=== PATIENT | female | born 1950 | race Caucasian/White ===

== ENCOUNTER 2017-03-16 10:01 | Emergency (ER) | payer MEDICARE, MEDICAID ==
[2017-03-16 10:09] VITALS: BP 149/76
[2017-03-16] MEDS ORDERED: DIPHTH,PERTUSS(ACELL),TET VAC 0.5 ML VIAL IM ONE ×2 (10:41→10:44)
--- NOTE | 2017-03-16 10:43 | ERNOTE ---
Animal Bite ER Date of Service: 03/16/17 Presenting Symptoms: bitten Time Seen by Provider: 03/16/17 10:10 Source: patient Exam Limitations: no limitations Immunizations: IMMUNIZATION HX History of Influenza Vaccine Yes Allergies/Adverse Reactions: Allergies No Known Allergies Allergy (Verified 03/16/17 10:09) Home Medications: HOME MEDICATIONS Aspirin [Aspirin Chewable] 81 mg PO DAILY 11/25/14 [Last Taken 11/25/14] Metoprolol Tartrate [Lopressor] 50 mg PO DAILY 11/25/14 [Last Taken 11/25/14] Amox Tr/Potassium Clavulanate [Augmentin 875-125 Tablet] 875 mg PO Q12H #20 tab 03/16/17 [Last Taken Unknown] Narrative: Pt is a 66 year old female who presents following getting bitten by her cat last night. The cat is an inside cat, she was taking it to get its vaccinations. All other cats in the house are up to date on their vaccinations. She denies n/v/d, endorses chills last night, but no fever. She washed the area with antibacterial soap and water this morning and last night. Date (Duration): 03/15/17 Time (Timing): 13:00 Onset Time: yesterday Location of Incident: Reports: home Animal Type: Reports: cat Animal Appearance: healthy Animal's Immunization Status: Reports: not immunized Observation/Capture: Reports: animal known, animal can be observed for 10 days Context of Attack: Reports: approached animal Severity of injury: Reports: bitten Location of Injury: Reports: upper extremity (L) Associated symptoms: Denies: numbness distally, pain on movement, tingling Review of Systems - Review of Systems Constitutional: Present: chills ENT: Present: no symptoms reported Respiratory: Present: no symptoms reported Cardiology: Present: no symptoms reported Gastrointestinal/Abdominal: Present: no symptoms reported Musculoskeletal: Present: no symptoms reported Skin: Present: other - two puncture meng on dorsal aspect of left index finger , surrounding erythema extending through half dorsal aspect of palm -scant serous drainage Neurological: Present: no symptoms reported - Patient's Past Medical History Patient History - Medical: No pertinent hx Patient History - Cardiac/Respiratory: Atrial Fibrillation Patient History - Surgical Procedures: D & C, Hysterectomy, Total Knee Replacement, T & A Patient History - Other: None - Social History Living Situations: home Psych History: No pertinent hx Alcohol Use: none Drug Use: none - Immunizations History of Influenza Vaccine: Yes Physical Exam - Physical Exam General Appearance: Present: wd/wn, alert, no apparent distress Respiratory: Present: no respiratory distress, no accessory muscle use Cardiovascular/Chest: Present: regular rate, rhythm, normal peripheral pulses Extremity Exam: Present: decreased range of motion, extremity edema - left index finger Neurological Exam: Present: alert, oriented, normal mood/affect, no motor/ sensory deficits Skin Exam: Present: other - erythema to left index finger Lymphatic Exam: Present: no adenopathy ED Progress - Vital Signs Patient's Vital Signs:: I have reviewed the patient's vital signs. Vital Signs: Vital Signs 03/16/17 10:04 Temperature 36.4 C L Pulse Rate 90 Respiratory 12 Rate Blood Pressure 149/76 O2 Sat by Pulse 98 Oximetry - Progress/Reassessment Chief Complaint: Animal Bite Progress:: Unchanged Departure Clinical Impression: Animal bite of finger Qualifiers: Encounter type: initial encounter Qualified Code(s): S61.259A - Open bite of unspecified finger without damage to nail, initial encounter - Departure Disposition: Home self-care Condition: Good Instructions: Animal Bite Additional Instructions: Soak area in warm soapy water three times a day keep wound clean and dry monitor for increased swelling, warmth, fever, or drainage-seek medical attention if noted Referrals: Randal Carrasco DO [Primary Care Provider] - Prescriptions: Amox Tr/Potassium Clavulanate [Augmentin 875-125 Tablet] 875 mg PO Q12H #20 tab
== END 2017-03-16 10:49 | disposition home or self-care (01) ==
LOC: ER 10:01
DX: S61.259A Open bite of unspecified finger without damage to nail, initial encounter (principal); W55.01XA Bitten by cat, initial encounter; Y92.009 Unspecified place in unspecified non-institutional (private) residence as the place of occurrence of the external cause; Z23 Encounter for immunization; I48.91 Unspecified atrial fibrillation

== ENCOUNTER 2018-06-21 11:35 | Observation (INO) ==
[2018-06-21] MEDS ORDERED: NORMAL SALINE 1,000 ML IV ONE ×3 (12:00→15:12)
[2018-06-21 12:16] LABS: Urine Appearance Clear (CLEAR); Urine Bacteria None Seen; Urine Bilirubin Negative (NEGATIVE); Urine Blood Negative /ul (NEGATIVE); Urine Color Yellow; Urine Ketone Negative (NEGATIVE); Urine Nitrite Negative (NEGATIVE); Urine Protein Negative (NEGATIVE); Urine RBC 0-5 /hpf (0-5); Urine Urobilinogen Normal (NORMAL); Urine WBC 0-5 /hpf (0-5)
--- NOTE | 2018-06-21 12:19 | ERNOTE ---
Medical Problem HPI - General Chief Complaint: Dizziness Time Seen by Provider: 06/21/18 12:02 Source: patient Exam Limitations: no limitations - Immun/Allergies/Home Medications Immunizations: IMMUNIZATION HX Immunizations Up to Date Yes History of Influenza Vaccine Yes Hx Pneumococcal Vaccination Yes Allergies/Adverse Reactions: Allergies No Known Allergies Allergy (Verified 06/21/18 11:57) Home Medications: HOME MEDICATIONS Aspirin [Aspirin Chewable] 81 mg PO DAILY 11/25/14 [Last Taken 02/03/18] cholecalciferol (vitamin D3) 1,000 unit tablet 1,000 unit PO DAILY 12/31/17 [Last Taken 02/03/18] multivitamin tablet 1 tab PO DAILY 12/31/17 [Last Taken 02/03/18] naproxen sodium 220 mg capsule 220 mg PO BID PRN 12/31/17 [Last Taken Unknown] metoprolol succinate ER 50 mg tablet,extended release 24 hr 50 mg PO DAILY #90 tab 03/19/18 [Last Taken Unknown] - History of Present History Narrative: Patient was seen in the ER yesterday morning after she had a near syncopal ep isode falling off the toilet. She was found to not have any significant injuries, was able to ambulate, and was discharged home. She states that she slept a lot, but felt well otherwise, was able to ambulate and took a shower. When she was ready to go to bed around 21:00 she started to feel lightheaded and weak again, might have passed out (as she found herself in bed in the wrong direction), continued to feel weak and dizzy, used the trash can to urinate as she couldn't get up and now arrives by EMS. She denies any focal symptoms, no chest pain, no abdominal pain, no vomiting, no diarrhea Review of Systems - Review of Systems Constitutional: Present: weakness, fatigue, malaise. Absent: recent illness, fever, chills EYE: Absent: vision changes ENT: Absent: nose congestion, sore throat Respiratory: Absent: shortness of breath, cough Cardiology: Absent: chest pain Gastrointestinal/Abdominal: Absent: nausea, vomiting, diarrhea, abdominal pain Genitourinary: Absent: frequency, dysuria Musculoskeletal: Absent: back pain Neurological: Present: dizziness/light-headedness, weakness. Absent: headache, numbness Medical History (Updated 06/20/18 @ 08:03 by Eloy Nayak DO) Lives with relatives Hemangioma of skin Onset Date: Unknown on the trunk of body Hypertension Onset Date: Unknown Irregular heart beat Onset Date: Unknown Obesity Onset Date: Unknown Seborrheic keratosis Onset Date: Unknown on trunk of body Cervical cancer Onset Date: ~1973 Surgical History: Surgical History (Updated 02/08/18 @ 14:35 by Jacquelyn Maurer RN) History of arthroscopy of knee Onset Date: ~1994 right History of cholecystectomy Onset Date: ~1996 lap History of colonoscopy Onset Date: 02/05/18 02/05/18 Maira-diverticulosis. No further follow up. History of dilation and curettage Onset Date: ~1973 prior to hysterectomy History of knee replacement Onset Date: ~2003 right History of oophorectomy Onset Date: ~1974 left-during hysterectomy History of tonsillectomy Onset Date: ~1973 History of total vaginal hysterectomy (TVH) Onset Date: ~1974 Dr Stuart-cervical cancer Family History: Family History (Updated 01/07/18 @ 10:09 by Jacquelyn Maurer RN) Father , age 93-unsure of cause Hypertension Diabetes Parkinson disease Mother A-fib Cancer non Hodgkins lymphoma-dx age 81 Brother Migraines 1 brother Obstructive sleep apnea 1 brother Alive and well 1 brother Grandmother Cancer maternal-breast ( in her 40's) Grandfather CVA (cerebral vascular accident) paternal Social History: Preferred Language Tuvaluan Do you have any mormon or No cultural preference? Smoking Status Former smoker Psych History No pertinent hx Alcohol Use none Drug Use none (Last Updated 01/17/18 @ 17:26 by Randal Carrasco DO) No Social History Section defined Physical Exam - Physical Exam General Appearance: Present: wd/wn, alert, no apparent distress, obese Head Exam: Present: normal inspection, no evidence of injury Eye Exam: Normal inspection: bilateral, PERRL: bilateral Ears, Nose, Throat: Present: normal ENT inspection Neck: Present: normal inspection Respiratory: Present: no respiratory distress, normal breath sounds, no accessory muscle use, lungs clear Cardiovascular/Chest: Present: no murmur, tachycardia Gastrointestinal/Abdominal: Present: normal bowel sounds, nontender, nondistended, soft Extremity Exam: Present: pedal edema - trace Neurological Exam: Present: alert, oriented, normal mood/affect, no motor/sensory deficits, 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 Absent: facial droop Skin Exam: Present: normal color, warm/dry Progress - Results and Orders Patient's Lab Results:: I have reviewed the patient's lab results. - Vital Signs Patient's Vital Signs:: I have reviewed the patient's vital signs. Vital Signs: Vital Signs 06/21/18 11:49 06/21/18 12:06 Temperature 36.2 C Pulse Rate 110 H 112 H Respiratory Rate 19 18 Blood Pressure 92/67 70/50 L O2 Sat by Pulse Oximetry 100 99 - EKG EKG #1 EKG: NSR - sinustachycardia - CT/Ultrasound CT/Ultrasound Narrative: nuclear medicine study: Positive for active GI bleed likely at the level of the stomach. - Progress/Reassessment Chief Complaint: Dizziness Progress Note-Subjective: 06/21/18 12:20 patient had large black BM concerning for GI bleed will order bleeding scan 06/21/18 12:[address] Deras 06/21/18 14:52 discussed bleeding scan with Dr Beard 06/21/18 15:00 discussed bleeding scan with Dr Deras, will take patient to OR for EGD as soon as OR is available 06/21/18 15:10 updated patient on plan 06/21/18 17:52 awaiting EGD, BP stable, will give one unit of RBCs as anticipating H/H o drop further depending on EGD results patient will be either admitted or transferred Departure Clinical Impression: Upper GI bleed - Departure Disposition: Still a patient Condition: Stable
[2018-06-21 12:24] LABS: Hematocrit 24.9 % (37.0-47.0); Hemoglobin 8.1 gm/dL (12.5-16.0); Mean Cell Volume 86.2 fl (78-100); Mean Corpuscular Hgb Conc 32.5 g/dl (32-36); Mean Platelet Volume 10.3 fl (8-12.5); Neutrophil # 10.6 K/mm3 (1.3-6.0); Neutrophil % 77.1 % (42-75.0); Platelet Count 260 K/mm3 (150-450); Red Blood Count 2.89 M/mm3 (4.2-5.4); Red Cell Distribution Width 14.2 % (11.5-14.0); White Blood Count 13.7 K/mm3 (4.0-10.5)
[2018-06-21] MEDS ORDERED: PANTOPRAZOLE SODIUM 40 MG/100 ML PIGGYBACK IV ONE (12:36)
[2018-06-21 13:33] LABS: Albumin * 2.8 gm/dl (3.4-5.0); Anion Gap 16.4 mmol/L (6.8-13.8); BUN/Creatinine Ratio 67.5 (9.0-21.6); Bilirubin, Total 0.3 mg/dL (0.0-1.1); Ca. Corrected For Albumin 8.7 mg/dL (8.4-10.2); Calcium * 8.1 mg/dL (7.9-10.9); Carbon Dioxide 21.6 mmol/L (24-32.6); Total Protein 5.8 gm/dL (6.2-8.2)
[2018-06-21 15:41] LABS: Hematocrit 25.5 % (37.0-47.0); Hemoglobin 8.2 gm/dL (12.5-16.0)
--- NOTE | 2018-06-21 15:55 | HP ---
Chief Complaint - Chief Complaint Date of Service: 06/21/18 Time of Service: 15:55 Chief Complaint: passed out, weak History of Present Illness: She states she really started having trouble on Sunday. Her head feeling funny "like clapping your hands over your ears". Patient was seen in the ER yesterday morning after she had a near syncopal episode falling off the toilet and twisting her left knee. She was found to have no significant injuries, was able to ambulate, and was discharged home. Her hemoglobin was 11.5 (down from 14.3 in October 2014). She was given "a double dose of naproxen". She states that she slept a lot, but felt well otherwise, was able to ambulate and took a shower. When she was ready to go to bed she started to feel lightheaded and weak again, might have passed out (as she found herself in bed in the wrong direction), continued to feel weak and dizzy, used the trash can to urinate as she couldn't get up and now arrives by EMS. She denies any focal symptoms, no chest pain, no abdominal pain. She had a large black bowel movement. She has not eaten today After arrival in the ER her hemoglobin was found to be 8.1 and a nuclear medicine tagged red blood cell study was obtained. The scan shows activity with gradual accumulation in the stomach indicating ongoing bleeding. Her vital signs have remained stable and a repeat hemoglobin is 8.2. She gets occasional indigestion or upset stomach but denies epigastric pain. She has considerable pain in her left knee on a regular basis and takes naproxen at least once a day. She is also on aspirin 81 mg daily She had a colonoscopy in February with the findings of sigmoid diverticulosis. Medical History (Updated 06/21/18 @ 15:55 by Maci Deras MD) Lives with relatives Hemangioma of skin Onset Date: Unknown on the trunk of body Hypertension Onset Date: Unknown Irregular heart beat Onset Date: Unknown Obesity Onset Date: Unknown Seborrheic keratosis Onset Date: Unknown on trunk of body Cervical cancer Onset Date: ~1973 Surgical History: Surgical History (Updated 06/21/18 @ 15:55 by Maci Deras MD) History of arthroscopy of knee Onset Date: ~1994 right History of cholecystectomy Onset Date: ~1996 lap History of colonoscopy Onset Date: 02/05/18 02/05/18 Maira-diverticulosis. No further follow up. History of dilation and curettage Onset Date: ~1973 prior to hysterectomy History of knee replacement Onset Date: ~2003 right History of oophorectomy Onset Date: ~1974 left-during hysterectomy History of tonsillectomy Onset Date: ~1973 History of total vaginal hysterectomy (TVH) Onset Date: ~1974 Dr Stuart-cervical cancer Family History: Family History (Updated 01/07/18 @ 10:09 by Jacquelyn Maurer RN) Father , age 93-unsure of cause Hypertension Diabetes Parkinson disease Mother A-fib Cancer non Hodgkins lymphoma-dx age 81 Brother Migraines 1 brother Obstructive sleep apnea 1 brother Alive and well 1 brother Grandmother Cancer maternal-breast ( in her 40's) Grandfather CVA (cerebral vascular accident) paternal Social History: Preferred Language Upper Sorbian Do you have any bahai or No cultural preference? Smoking Status Former smoker Psych History No pertinent hx Alcohol Use none Drug Use none (Last Updated 01/17/18 @ 17:26 by Randal Carrasco DO) No Social History Section defined Review Of Systems (GEN) - Review of Systems Generalized/Overall Review: Present: Weakness, Fatigue. Absent: Chills, Fever EENTM: Present: Other Respiratory: Absent: Cough, Shortness of Breath Cardiac: Present: Syncope. Absent: Chest Pain, Palpitations Abdominal: Present: Other - Large black bowel movement. Absent: Nausea, Vomiting, Hematemesis, Abdominal Pain Genitourinary: Present: No Symptoms Reported, Nocturia Musculoskeletal: Present: Joint Pain Neurological: Present: Weakness, Other - Apparent near syncopal or syncopal episode. No focal neurologic deficits Skin: Present: No Symptoms Reported Endocrine: Present: No Symptoms Reported Immunizations: IMMUNIZATION HX Immunizations Up to Date Yes History of Influenza Vaccine Yes Hx Pneumococcal Vaccination Yes Allergies/Adverse Reactions: Allergies Allergy/AdvReac Type Severity Reaction Status Date / Time No Known Allergies Allergy Verified 06/21/18 11:57 Home Medications: HOME MEDICATIONS Aspirin [Aspirin Chewable] 81 mg PO DAILY 11/25/14 [Last Taken 02/03/18] cholecalciferol (vitamin D3) 1,000 unit tablet 1,000 unit PO DAILY 12/31/17 [Last Taken 02/03/18] multivitamin tablet 1 tab PO DAILY 12/31/17 [Last Taken 02/03/18] naproxen sodium 220 mg capsule 220 mg PO BID PRN 12/31/17 [Last Taken Unknown] metoprolol succinate ER 50 mg tablet,extended release 24 hr 50 mg PO DAILY #90 tab 03/19/18 [Last Taken Unknown] Exam - Exam Vital Signs: Vital Signs - Last Taken Temp 36.2 C 06/21/18 12:06 Pulse 116 H 06/21/18 15:00 Resp 13 06/21/18 15:00 BP 107/32 06/21/18 15:00 Pulse Ox 100 06/21/18 15:00 Constitutional: Present: Alert, Oriented x3, Cooperative, Mild distress, Morbidly obese ENT Exam: Present: other - Mallamatti 3 airway. Short very thick neck. 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, no motor/sensory deficits Appearance: Present: appropriate appearance, appropriate insight, no memory impairment Eye contact: Present: cooperative, good eye contact, normal speech Thoughts: Present: normal thought pattern Diagnostic Studies: Abnormal Lab Results 06/21/18 06/21/18 06/21/18 Range/Units 12:10 12:10 12:23 WBC 13.7 H (4.0-10.5) K/mm3 RBC 2.89 L (4.2-5.4) M/mm3 Hgb 8.1 L (12.5-16.0) gm/dL Hct 24.9 L (37.0-47.0) % RDW 14.2 H (11.5-14.0) % Immature Gran % (Auto) 0.90 H (0.001-0.429) % Immature Gran # (Auto) 0.13 H (0.000-0.0310) K/mm3 Neutrophils % 77.1 H (42-75.0) % Lymphocytes % 14.1 L (20-51) % Neutrophils # 10.6 H (1.3-6.0) K/mm3 Sodium 145 H (132-142) mmol/L Plasma Sodium 146 H (130-142) mmol/L Chloride 111 H (97-106) mmol/L Carbon Dioxide 21.6 L (24-32.6) mmol/L Anion Gap 16.4 H (6.8-13.8) mmol/L BUN 54 H (3-23) mg/dL BUN/Creatinine Ratio 67.5 H (9.0-21.6) Random Glucose 157 H (70-110) mg/dL Total Protein 5.8 L (6.2-8.2) gm/dL Albumin 2.8 L (3.4-5.0) gm/dl Stool Occult Blood Stl C.difficile Tox A&B Formed stool A (Negative) Crossmatch 06/21/18 06/21/18 06/21/18 Range/Units 12:30 12:47 15:30 WBC (4.0-10.5) K/mm3 RBC (4.2-5.4) M/mm3 Hgb 8.2 L (12.5-16.0) gm/dL Hct 25.5 L (37.0-47.0) % RDW (11.5-14.0) % Immature Gran % (Auto) (0.001-0.429) % Immature Gran # (Auto) (0.000-0.0310) K/mm3 Neutrophils % (42-75.0) % Lymphocytes % (20-51) % Neutrophils # (1.3-6.0) K/mm3 Sodium (132-142) mmol/L Plasma Sodium (130-142) mmol/L Chloride (97-106) mmol/L Carbon Dioxide (24-32.6) mmol/L Anion Gap (6.8-13.8) mmol/L BUN (3-23) mg/dL BUN/Creatinine Ratio (9.0-21.6) Random Glucose (70-110) mg/dL Total Protein (6.2-8.2) gm/dL Albumin (3.4-5.0) gm/dl Stool Occult Blood Positive H Stl C.difficile Tox A&B (Negative) Crossmatch See Detail Laboratory Results WBC 13.7 K/mm3 (4.0-10.5) H 06/21/18 12:10 RBC 2.89 M/mm3 (4.2-5.4) L 06/21/18 12:10 Hgb 8.2 gm/dL (12.5-16.0) L 06/21/18 15:30 Hct 25.5 % (37.0-47.0) L 06/21/18 15:30 MCV 86.2 fl (78-100) 06/21/18 12:10 MCH 28.0 pg (27-31) 06/21/18 12:10 MCHC 32.5 g/dl (32-36) 06/21/18 12:10 RDW 14.2 % (11.5-14.0) H 06/21/18 12:10 Plt Count 260 K/mm3 (150-450) 06/21/18 12:10 MPV 10.3 fl (8-12.5) 06/21/18 12:10 Immature Gran % (Auto) 0.90 % (0.001-0.429) H 06/21/18 12:10 Immature Gran # (Auto) 0.13 K/mm3 (0.000-0.0310) H 06/21/18 12:10 77.1 % (42-75.0) H 06/21/18 12:10 14.1 % (20-51) L 06/21/18 12:10 6.9 % (0.0-9) 06/21/18 12:10 0.3 % (0.0-3.0) 06/21/18 12:10 0.7 % (0.0-1.0) 06/21/18 12:10 Nucleated RBC % 0.0 k/mm3 (0-1) 06/21/18 12:10 10.6 K/mm3 (1.3-6.0) H 06/21/18 12:10 1.93 k/mm3 (1.5-3.5) 06/21/18 12:10 1.0 k/mm3 (0.0-1.0) 06/21/18 12:10 0.0 k/mm3 (0.0-0.7) 06/21/18 12:10 Absolute Basophils 0.1 k/mm3 (0.0-0.1) 06/21/18 12:10 Sodium 145 mmol/L (132-142) H 06/21/18 12:10 146 mmol/L (130-142) H 06/21/18 12:10 Potassium 4.0 mmol/L (3.4-4.6) 06/21/18 12:10 Chloride 111 mmol/L (97-106) H 06/21/18 12:10 Carbon Dioxide 21.6 mmol/L (24-32.6) L 06/21/18 12:10 16.4 mmol/L (6.8-13.8) H 06/21/18 12:10 BUN 54 mg/dL (3-23) H 06/21/18 12:10 0.80 mg/dL (0.4-1.4) 06/21/18 12:10 Est GFR (Non-Af Amer) 76 mL/min (60-130) 06/21/18 12:10 67.5 (9.0-21.6) H 06/21/18 12:10 157 mg/dL (70-110) H 06/21/18 12:10 1.5 mmol/L (0.4-2.0) 06/21/18 12:10 Calcium 8.1 mg/dL (7.9-10.9) 06/21/18 12:10 Calcium Adj for Albumin 8.7 mg/dL (8.4-10.2) 06/21/18 12:10 0.3 mg/dL (0.0-1.1) 06/21/18 12:10 AST 18 U/L (0-48) 06/21/18 12:10 ALT 20 U/L (19-67) 06/21/18 12:10 65 U/L (50-170) 06/21/18 12:10 Less than 0.017 ng/mL (0.00-0.10) 06/21/18 12:10 5.8 gm/dL (6.2-8.2) L 06/21/18 12:10 2.8 gm/dl (3.4-5.0) L 06/21/18 12:10 0.05 ng/mL (0.05-0.50) 06/21/18 12:10 Yellow 06/21/18 12:06 Clear (CLEAR) 06/21/18 12:06 6.0 pH (5.0-7.0) 06/21/18 12:06 Ur Specific Citra 1.020 SP.GR. (1.005-1.010) 06/21/18 12:06 Negative mg/dL (NEGATIVE) 06/21/18 12:06 Negative mg/dL (NEGATIVE) 06/21/18 12:06 Negative mg/dL (NEGATIVE) 06/21/18 12:06 Negative /ul (NEGATIVE) 06/21/18 12:06 Negative (NEGATIVE) 06/21/18 12:06 Negative mg/dl (NEGATIVE) 06/21/18 12:06 Normal EU/dl (NORMAL) 06/21/18 12:06 Ur Leukocyte Esterase Negative /ul (NEGATIVE) 06/21/18 12:06 0-5 /hpf (0-5) 06/21/18 12:06 0-5 /hpf (0-5) 06/21/18 12:06 Ur Epithelial Cells 0-5 /hpf (0-5) 06/21/18 12:06 None seen (NONE) 06/21/18 12:06 Culture to follow 06/21/18 12:06 Positive H 06/21/18 12:30 Stl C.difficile Tox A&B Formed stool (Negative) A 06/21/18 12:23 Blood Type A Positive 06/21/18 12:47 Antibody Screen Negative 06/21/18 12:47 Crossmatch See Detail 06/21/18 12:47 Nuclear medicine bleeding scan shows activity in the stomach compatible with active bleeding Assessment/Plan - Assessment/Plan (1) Upper GI bleed Assessment: The history, black stool, elevated BUN all suggest upper GI bleeding which is confirmed by the nuclear medicine tagged RBC study. Need to determine whether this is due to gastritis due to NSAID's (which would be treated medically) or an ulcer which might require surgery. Explained what was involved with an EGD. The risks and possible complications and the benefits of the study were explained in detail. After interactive discussion her questions were answered to her apparent satisfaction and she has given informed consent for EGD with biopsy. Samples will be taken for pathology and CLOtest. With active bleeding, will discuss endotracheal intubation with anesthesia to protect her airway from vomiting and aspiration. Disposition after surgery will depend upon findings Problem: Acute
--- NOTE | 2018-06-21 18:30 | ANES ---
Anesthesia Pre Procedure Eval Vitals/Labs: Last Vital Signs Temp 36.9 C 06/21/18 18:17 Pulse 119 H 06/21/18 18:17 Resp 22 H 06/21/18 18:17 BP 131/72 06/21/18 18:17 Pulse Ox 100 06/21/18 18:17 HOME MEDICATIONS Aspirin [Aspirin Chewable] 81 mg PO DAILY 11/25/14 [Last Taken 02/03/18] cholecalciferol (vitamin D3) 1,000 unit tablet 1,000 unit PO DAILY 12/31/17 [Last Taken 02/03/18] multivitamin tablet 1 tab PO DAILY 12/31/17 [Last Taken 02/03/18] naproxen sodium 220 mg capsule 220 mg PO BID PRN 12/31/17 [Last Taken Unknown] metoprolol succinate ER 50 mg tablet,extended release 24 hr 50 mg PO DAILY #90 tab 03/19/18 [Last Taken Unknown] Allergies/Adverse Reactions: Allergies Allergy/AdvReac Type Severity Reaction Status Date / Time No Known Allergies Allergy Verified 06/21/18 11:57 - Planned Procedure Planned Procedure: weakness/dizzy Medication List Reviewed:: Yes Allergies Verified: Yes Medical History (Updated 06/21/18 @ 15:55 by Maci Deras MD) Lives with relatives Hemangioma of skin Onset Date: Unknown on the trunk of body Hypertension Onset Date: Unknown Irregular heart beat Onset Date: Unknown Obesity Onset Date: Unknown Seborrheic keratosis Onset Date: Unknown on trunk of body Cervical cancer Onset Date: ~1973 Surgical History (Updated 06/21/18 @ 15:55 by Maci Deras MD) History of arthroscopy of knee Onset Date: ~1994 right History of cholecystectomy Onset Date: ~1996 lap History of colonoscopy Onset Date: 02/05/18 02/05/18 Maira-diverticulosis. No further follow up. History of dilation and curettage Onset Date: ~1973 prior to hysterectomy History of knee replacement Onset Date: ~2003 right History of oophorectomy Onset Date: ~1974 left-during hysterectomy History of tonsillectomy Onset Date: ~1973 History of total vaginal hysterectomy (TVH) Onset Date: ~1974 Dr Stuart-cervical cancer Family History (Updated 01/07/18 @ 10:09 by Jacquelyn Maurer RN) Father , age 93-unsure of cause Hypertension Diabetes Parkinson disease Mother A-fib Cancer non Hodgkins lymphoma-dx age 81 Brother Migraines 1 brother Obstructive sleep apnea 1 brother Alive and well 1 brother Grandmother Cancer maternal-breast ( in her 40's) Grandfather CVA (cerebral vascular accident) paternal - Family Anesthesia History Family History:: no untoward family reactions to anesthesia, no familial bleeding tendencies, no family history of clotting disorders, no family history of premature - Airway/Neck/Teeth Within Normal Limits:: Yes Teeth Condition: intact Neck Exam: full range of motion Mallampatti Score: 2 Thyromental (T-M) distance: > 6 cm Mandibulo Hyoid distance: > 3 cm - Respiratory Respiratory Physical: lungs clear Smoking Status: Never smoker Sleep Apnea currently treated: No Sleep Apnea by current assessment: No - Cardiovascular Cardiac History: arrhythmia - pt relates this is why she takes metoprolol, hypertension - although pt denies Tolerate Activity: Fair Heart Sounds: S1 & S2, Regular - Anesthesia Assessment and Plan ASA Class: PS, III, E Anesthesia Type Plan: MAC
[2018-06-21] MEDS ORDERED: RINGER'S SOLUTION,LACTATED 1,000 ML IV PRN (19:15)
--- NOTE | 2018-06-21 20:00 | PN ---
Dictated Progress Note - Date and Time Seen: Date: 06/21/18 Time: 19:57 - Progress Note Narrative: Vital Signs - Last Taken Temp 36.9 C 06/21/18 19:17 Pulse 119 H 06/21/18 19:17 Resp 17 06/21/18 19:17 BP 131/69 06/21/18 19:17 Pulse Ox 100 06/21/18 19:17 Abnormal/Pending Laboratory Last 24 HRS 06/21/18 06/21/18 06/21/18 15:30 12:47 12:30 WBC RBC Hgb 8.2 L Hct 25.5 L RDW Immature Gran % (Auto) Immature Gran # (Auto) Neutrophils % Lymphocytes % Neutrophils # Sodium Plasma Sodium Chloride Carbon Dioxide Anion Gap BUN BUN/Creatinine Ratio Random Glucose Total Protein Albumin Stool Occult Blood Positive H Stl C.difficile Tox A&B Crossmatch See Detail 06/21/18 06/21/18 06/21/18 12:23 12:10 12:10 WBC 13.7 H RBC 2.89 L Hgb 8.1 L Hct 24.9 L RDW 14.2 H Immature Gran % (Auto) 0.90 H Immature Gran # (Auto) 0.13 H Neutrophils % 77.1 H Lymphocytes % 14.1 L Neutrophils # 10.6 H Sodium 145 H Plasma Sodium 146 H Chloride 111 H Carbon Dioxide 21.6 L Anion Gap 16.4 H BUN 54 H BUN/Creatinine Ratio 67.5 H Random Glucose 157 H Total Protein 5.8 L Albumin 2.8 L Stool Occult Blood Stl C.difficile Tox A&B Formed stool A Crossmatch She has a pre-pyloric ulcer with a clot (no active bleeding). VS have remained stable as has Hgb. Will place in Observation for 2 units of blood. Has gotten 40mg Protonix and will start Sucralfate AC/HS 1st dose tonight NPO except water tonight and re-eval in AM OOB with assistance only
--- NOTE | 2018-06-21 20:03 | ANES ---
Post Anesthesia Discharge - Transfer of Care Transfer of Care handoff given to nurse: Yes - Discharge to ASU Discharge to ASU-no complications/pt stable: Yes - Comfortable in room 107.
--- NOTE | 2018-06-21 20:12 | OR ---
Operative Report - Dictated Report Narrative: Operative Report Date of operation: 06/21/2018 Preoperative diagnosis: Upper GI bleeding Postoperative diagnosis: Prepyloric ulcer (no active bleeding) Operation: EGD with biopsies Surgeon: Dr Deras Anesthesia: MAGED Patrick CRNA Indications for procedure: The patient is a 67-year-old female who is presented to the emergency room twice with near syncope. She was found to have a fall in hemoglobin, had a large black stool, and a nuclear medicine tagged red blood cell study reveals accumulation of tracer in the stomach compatible with bleeding. She has been on naproxen Findings: 1 cm prepyloric ulcer with clot. No active bleeding. Normal esophagus, normal remainder of the stomach, no evidence of duodenal bulb ulceration or bleeding. Narrative of procedure: The patient was identified preoperatively, and prior to the administration of anesthetic a multidisciplinary timeout was observed With the patient in the recumbent position, a bite-block was placed, intravenous sedation administered, and the patient's eyes covered with a towel. The flexib le fiberoptic gastroscope was advanced into the posterior pharynx which appeared normal. There was no evidence of epistaxis from above. The supraglottic larynx appeared normal. The cords appeared normal, moved well, and opposed in the midline. The scope was advanced under direct vision into the proximal esophagus which appeared normal. The esophagus appeared freely distensible with normal mucosa. There were no esophageal varices. The esophageal mucosa appeared normal down to the gastroesophageal junction which was sharp and noninflamed. The GE junction appeared normally distensible. There was no evidence of Cathy-Howard tear. The scope was advanced into the stomach which was insufflated with air. The stomach was empty. Retroflexed view of the gastric fundus revealed no evidence of bleeding site. The scope was redirected toward the pylorus. There was a 1 cm prepyloric ulceration with clot. The ulcer had a benign appearance and there was no active bleeding. The pylorus appeared patent. The scope was advanced into the duodenal bulb which appeared erythematous but no robyn ulcers were apparent. The scope was advanced further to the horizontal portion of the duodenum which appeared normal, specifically the villous architecture appeared well preserved and clear bile was present. The scope was slowly withdrawn through the duodenal bulb with confirmation that no active ulcer was present. The scope was withdrawn into the stomach and sales representative door to door biopsies of gastric mucosa obtained for CLOtest and pathology. The biopsy sites were seen to be hemostatic. Photographs of the ulcer were obtained. The insufflated air was removed, the scope withdrawn from the patient, and the procedure terminated. The patient tolerated the anesthetic and procedure well without complication and was transferred back to the [facility] floor awake and in stable condition. I explained the procedure findings to the patient and showed her pictures to her. She will be placed in observation bed overnight for blood administration. She will be kept n.p.o. status with sucralfate. She is already received IV Protonix. Reviewed and electronically signed
[2018-06-22] MEDS: SUCRALFATE 1 G TABLET PO SCH ×4 (00:12→17:29)
[2018-06-22] MEDS: ACETAMINOPHEN 500 MG TABLET PO PRN ×2 (02:25→15:46)
[2018-06-22] MEDS: RINGER'S SOLUTION,LACTATED 1,000 ML IV PRN ×2 (02:26→15:59)
--- NOTE | 2018-06-22 06:40 | ANES ---
Post Anesthesia Assessment - Vital Signs Vitals: Last Vital Signs Temp 37.0 C 06/22/18 06:39 Pulse 94 06/22/18 06:39 Resp 18 06/22/18 06:39 BP 103/47 06/22/18 06:39 Pulse Ox 98 06/22/18 06:39 Airway Patency: Normal - Mental Status Level Of Consciousness: Awake, Alert, Appropriate - Pain Level Pain Score: 0 - N/V Assessment Nausea/Vomiting Presence: None Dehydration:: No
[2018-06-22 07:14] LABS: Hematocrit 27.7 % (37.0-47.0)
--- NOTE | 2018-06-22 08:59 | PN ---
Subjective - Date and Time Seen Date: 06/22/18 Time: 08:54 Subjective Narrative: She feels weak but has had no orthostatic symptoms. She refused to get out of bed without much encouragement but is now sitting in a chair. Had knee pain, reinforced that we will have to stick to Tylenol for now. Objective - Review of Systems Generalized/Overall Review: Reports: Weakness. Denies: Chills, Fever EENTM: Reports: No Symptoms Reported Respiratory: Denies: Cough, Shortness of Breath Cardiac: Denies: Chest Pain, Edema, Palpitations, Syncope Abdominal: Reports: No Symptoms Reported Genitourinary Symptoms: Reports: No Symptoms Reported, Other - Refused to get up for the bathroom last night and use the bedpan but is voiding Musculoskeletal Complaints: Reports: Joint Pain, Other - Complaining of considerable knee pain Neurological: Reports: No Symptoms Reported. Denies: Headache Skin: Reports: No Symptoms Reported Endocrine: Reports: No Symptoms Reported - Vitals Vitals: Last Vital Signs Temp 37.0 C 06/22/18 06:39 Pulse 94 06/22/18 06:39 Resp 18 06/22/18 06:39 BP 103/47 06/22/18 06:39 Pulse Ox 98 06/22/18 06:39 - Abnormal Lab Findings Abnormal Lab Findings: Abnormal Lab Results 06/21/18 06/21/18 06/21/18 Range/Units 12:10 12:10 12:23 WBC 13.7 H (4.0-10.5) K/mm3 RBC 2.89 L (4.2-5.4) M/mm3 Hgb 8.1 L (12.5-16.0) gm/dL Hct 24.9 L (37.0-47.0) % RDW 14.2 H (11.5-14.0) % Immature Gran % (Auto) 0.90 H (0.001-0.429) % Immature Gran # (Auto) 0.13 H (0.000-0.0310) K/mm3 Neutrophils % 77.1 H (42-75.0) % Lymphocytes % 14.1 L (20-51) % Neutrophils # 10.6 H (1.3-6.0) K/mm3 Sodium 145 H (132-142) mmol/L Plasma Sodium 146 H (130-142) mmol/L Chloride 111 H (97-106) mmol/L Carbon Dioxide 21.6 L (24-32.6) mmol/L Anion Gap 16.4 H (6.8-13.8) mmol/L BUN 54 H (3-23) mg/dL BUN/Creatinine Ratio 67.5 H (9.0-21.6) Random Glucose 157 H (70-110) mg/dL Total Protein 5.8 L (6.2-8.2) gm/dL Albumin 2.8 L (3.4-5.0) gm/dl Stool Occult Blood Stl C.difficile Tox A&B Formed stool A (Negative) Crossmatch 06/21/18 06/21/18 06/21/18 Range/Units 12:30 12:47 15:30 WBC (4.0-10.5) K/mm3 RBC (4.2-5.4) M/mm3 Hgb 8.2 L (12.5-16.0) gm/dL Hct 25.5 L (37.0-47.0) % RDW (11.5-14.0) % Immature Gran % (Auto) (0.001-0.429) % Immature Gran # (Auto) (0.000-0.0310) K/mm3 Neutrophils % (42-75.0) % Lymphocytes % (20-51) % Neutrophils # (1.3-6.0) K/mm3 Sodium (132-142) mmol/L Plasma Sodium (130-142) mmol/L Chloride (97-106) mmol/L Carbon Dioxide (24-32.6) mmol/L Anion Gap (6.8-13.8) mmol/L BUN (3-23) mg/dL BUN/Creatinine Ratio (9.0-21.6) Random Glucose (70-110) mg/dL Total Protein (6.2-8.2) gm/dL Albumin (3.4-5.0) gm/dl Stool Occult Blood Positive H Stl C.difficile Tox A&B (Negative) Crossmatch See Detail 06/22/18 Range/Units 07:08 WBC (4.0-10.5) K/mm3 RBC (4.2-5.4) M/mm3 Hgb 9.0 L (12.5-16.0) gm/dL Hct 27.7 L (37.0-47.0) % RDW (11.5-14.0) % Immature Gran % (Auto) (0.001-0.429) % Immature Gran # (Auto) (0.000-0.0310) K/mm3 Neutrophils % (42-75.0) % Lymphocytes % (20-51) % Neutrophils # (1.3-6.0) K/mm3 Sodium (132-142) mmol/L Plasma Sodium (130-142) mmol/L Chloride (97-106) mmol/L Carbon Dioxide (24-32.6) mmol/L Anion Gap (6.8-13.8) mmol/L BUN (3-23) mg/dL BUN/Creatinine Ratio (9.0-21.6) Random Glucose (70-110) mg/dL Total Protein (6.2-8.2) gm/dL Albumin (3.4-5.0) gm/dl Stool Occult Blood Stl C.difficile Tox A&B (Negative) Crossmatch - Exam Constitutional: Present: Alert, Oriented x3, Cooperative, Obese ENT Exam: Present: normal ENT inspection Neck: Present: full range of motion, normal inspection Respiratory: Present: no respiratory distress Cardiovascular/Chest: Present: regular rate, rhythm Abdomen: Present: obese, other - Denies pain or tenderness /Rectal: Present: Exam deferred Extremity: Present: no pedal edema, no calf tenderness, other - Complains of knee pain Skin Exam: Present: pallor, other - Color is better after transfusion Neurologic: Present: [place] line attendant II-XII nml as tested, no motor/sensory deficits Appearance: Present: appropriate appearance, appropriate insight Eye contact: Present: cooperative, good eye contact, normal speech Thoughts: Present: normal thought pattern Assessment/Plan Plan Narrative: Her pulse is down after transfusion and with additional IV fluids. Blood pressure is good. Will hold metoprolol (she usually takes it at night). Will continue to hold aspirin. Tylenol only for pain. We will have PT evaluate her knee and make recommendations to keep her safe with ambulation. Trial clear liquids this morning and potentially advance to general diet for lunch. Will reevaluate midday - Problems/Diagnosis (1) Upper GI bleed Problem: Acute
[2018-06-22] MEDS ORDERED: METOPROLOL SUCCINATE 50 MG TABLET.SA PO SCH (09:00)
--- NOTE | 2018-06-22 18:13 | DS ---
(1) Upper GI bleed Diagnosis(s): She was found to have a pre-pyloric ulcer, clotted, presumably from Aleve. Bettie- test and antral biopsy pending Problem: Acute Description of Stay: She was endoscoped with finding of a clotted pre-pyloric ulcer. Biopsies for antral pathology and bettie-test taken. She recieved 2 units of PRBC's with response in Hgb to 9.0. VS remained normal. She was seen by PT for left knee pain and a walker was recommended (has at home) She will need to f/u with Ortho as OP with PT if needed. Will continue on Protonix 40mg po daily with Sucralfate 1gm AC/HS for now. Hold ASA until seen in f/u by Dr Carrasco, her PCP, this week with a repeat CBC prior to the visit. Continue Metoprolol. No NSAID's (tylenol for pain) and Rx for Iron. Procedures Performed: none - EGD with biopsies Results and Findings: Pending Mircobiology Results 06/21/18 Unknown Stool Stool Culture - Preliminary No Pathogens Isolated 06/21/18 12:00 Urine,Catheterized Urine Culture - Preliminary No Growth Lab Pending Results 06/21/18 12:06: Urine Color Yellow, Urine Appearance Clear, Urine pH 6.0, Ur Specific [place] 1.020, Urine Protein Negative, Urine Glucose (UA) Negative, Urine Ketones Negative, Urine Blood Negative, Urine Nitrate Negative, Urine Bilirubin Negative, Urine Urobilinogen Normal, Ur Leukocyte Esterase Negative, Urine RBC 0-5, Urine WBC 0-5, Ur Epithelial Cells 0-5, Urine Bacteria None seen, Urine Culture Comments Culture to follow 06/21/18 12:10: WBC 13.7 H, RBC 2.89 L, Hgb 8.1 L, Hct 24.9 L, MCV 86.2, MCH 28.0, MCHC 32.5, RDW 14.2 H, Plt Count 260, MPV 10.3, Immature Gran % (Auto) 0.90 H, Immature Gran # (Auto) 0.13 H, Neutrophils % 77.1 H, Lymphocytes % 14.1 L, Monocytes % 6.9, Eosinophils % 0.3, Basophils % 0.7, Nucleated RBC % 0.0, Neutrophils # 10.6 H, Lymphocytes # 1.93, Monocytes # 1.0, Eosinophils # 0.0, Absolute Basophils 0.1 06/21/18 12:10: Troponin I Less than 0.017 06/21/18 12:10: Lactic Acid, Venous 1.5 06/21/18 12:10: Procalcitonin 0.05 06/21/18 12:10: Sodium 145 H, Plasma Sodium 146 H, Potassium 4.0, Chloride 111 H, Carbon Dioxide 21.6 L, Anion Gap 16.4 H, BUN 54 H, Creatinine 0.80, Est GFR (Non-Af Amer) 76, BUN/Creatinine Ratio 67.5 H, Random Glucose 157 H, Calcium 8.1, Calcium Adj for Albumin 8.7, Total Bilirubin 0.3, AST 18, ALT 20, Alkaline Phosphatase 65, Total Protein 5.8 L, Albumin 2.8 L 06/21/18 12:23: Stl C.difficile Tox A&B Formed stool A 06/21/18 12:30: Stool Occult Blood Positive H 06/21/18 12:47: Blood Type A Negative, Antibody Screen Negative, Crossmatch See Detail 06/21/18 15:30: Hgb 8.2 L, Hct 25.5 L 06/22/18 07:08: Hgb 9.0 L, Hct 27.7 L Discharge Location: Home Disposition: Home self-care Condition: Stable Discharge Activity: Activity as tolerated, Other - walker Discharge Diet: General/regular food Referrals: Randal Carrasco DO [Primary Care Provider] - Prescriptions (Any new or edited meds): Ferrous Gluconate [Iron] 236 mg PO DAILY #30 tab Pantoprazole Sodium [Protonix] 40 mg PO DAILY #30 tab Complete Home Medications List: Complete Home Medication List: Aspirin [Aspirin Chewable] 81 mg PO DAILY 11/25/14 metoprolol succinate ER 50 mg tablet,extended release 24 hr 50 mg PO DAILY #90 tab 03/19/18 Ferrous Gluconate [Iron] 236 mg PO DAILY #30 tab 06/22/18 Pantoprazole Sodium [Protonix] 40 mg PO DAILY #30 tab 06/22/18 Sucralfate [Carafate] 1 g PO ACHS #30 tab 06/22/18
[2018-06-22 18:38] VITALS: BP 129/75
== END 2018-06-22 18:40 | disposition home or self-care (01) ==
LOC: ER 11:35 → AMB 18:58 → MS 18:58 → AMB 19:05
PROVIDERS: ADMIT Surgery; ATTEND Surgery
DX: M25.569 Pain in unspecified knee; K92.2 Gastrointestinal hemorrhage, unspecified; R42 Dizziness and giddiness
CPT/HCPCS: 36415; 36430; 78278; 80053; 81001; 82272; 83605; 84145; 84484; 85014; 85018; 85025; 86850; 87045; 87046; 87081; 87086; 87493; 88305; 88312; 88313; 93005; 96360; 96361; 97162; 99285; A9560; G0378; P9016